=== PATIENT | male | born 1955 | race Caucasian/White ===

== ENCOUNTER → 2017-09-21 | Outpatient (CLI) | payer BC | LOC: FIMAGING 10:01 | PROVIDERS: ATTEND Orthopaedic Surgery | DX: Z01.818 Encounter for other preprocedural examination (principal); M17.12 Unilateral primary osteoarthritis, left knee; M71.22 Synovial cyst of popliteal space [Baker], left knee ==

== ENCOUNTER 2017-10-05 06:26 | Observation (INO) | payer BC, OTHER ==
[~2017-10-05 06:26] MED LIST: ROPIVACAINE 0.2% 80 MG, EPINEPHrine 0.2 MG, KETOROLAC TROMETHAMINE 30 MG in SYRINGE 0 ML IU ONE; TRANEXAMIC ACID 3,000 MG in NS (SYRINGE) 50 ML IRR ONE
[2017-10-05] MEDS ORDERED: FAMOTIDINE 20 MG TAB PO ONE (06:45)
[2017-10-05] MEDS ORDERED: DEXAMETHASONE 4 MG/ML VIAL IVP ONE (06:45)
[2017-10-05] MEDS ORDERED: ACETAMINOPHEN 325 MG TAB PO ONE (06:45)
[2017-10-05] MEDS ORDERED: ceFAZolin 2 GM/DEXTROSE 100 ML IV ONE (06:45)
[2017-10-05] MEDS ORDERED: LIDOCAINE 1% 2 ML INJ ID PRN (07:00)
[2017-10-05] MEDS ORDERED: LR 1,000 ML IV ONE (07:00)
--- NOTE | 2017-10-05 07:14 | PDHPUP ---
History & Physical Update H&P update statement: This history and physical update is based on an assessment of the patient which was completed after admission or registration (within 24 hours), but prior to the surgery/procedure. H&P update: H&P reviewed & patient examined, no change in patient's condition since H&P completed
[2017-10-05 07:38] LABS: INR 1.04 (0.83-1.16); PROTIME(PATIENT) 13.8 SEC (12.0-15.0)
[2017-10-05] MEDS ORDERED: TRANEXAMIC ACID 3,000 MG/50 ML BAG IRR ONE (07:43)
[2017-10-05] MEDS ORDERED: VANCOMYCIN 1 GM VIAL ONE (07:44)
--- NOTE | 2017-10-05 07:54 | POSTANESTH ---
Post Anesthetic Evaluation Cardiovascular Status: Normal, Stable Respiratory Status: Normal, Stable Level of Consciousness/Mental Status: Can Participate in Eval, Other, See Comment (Somewhat disoriented, but responds appropriately to questions) Pain Control: Adequate, Prn Tx Ordered Nausea/Vomiting Control: Adequate, Prn Tx Ordered Complications Possibly Related to Anesthesia: None Noted
--- NOTE | 2017-10-05 07:56 | PDANEPAE ---
ANE History of Present Illness 62 yo male with L knee OA for L TKA. ANE Past Medical History - Cardiovascular History Hx Hypertension: No Hx Arrhythmias: No Hx Chest Pain: No Hx Coronary Artery / Peripheral Vascular Disease: No Hx CHF / Valvular Disease: No Hx Palpitations: No - Pulmonary History Hx COPD: No Hx Asthma/Reactive Airway Disease: No Hx Recent Upper Respiratory Infection: No Hx Oxygen in Use at Home: No Hx Sleep Apnea: No Sleep Apnea Screening Result - Last Documented: Negative - Neurologic History Hx Cerebrovascular Accident: No Hx Seizures: No Hx Dementia: No - Endocrine History Hx Diabetes: No Hypothyroid: No Hyperthyroid: No Obesity: mild - Renal History Hx Renal Disorders: No - Liver History Hx Hepatic Disorders: No - Neurological & Psychiatric Hx Hx Neurological and Psychiatric Disorders: No - Cancer History Hx Cancer: No - Congenital Disorder History Hx Congenital Disorders: No - GI History Hx Gastrointestinal Disorders: No - Other Health History Other Health History: 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, on lifelong Coumadin since - Chronic Pain History Chronic Pain: Yes (right leg) - Surgical History Prior Surgeries: left knee scope 2015 ANE Review of Systems Review of Systems: - Exercise capacity METS (RN): 5 METS - Systems Constitutional: Reports: no symptoms EENMT: Reports: no symptoms Cardiac: Reports: no symptoms ANE Patient History - Allergies Allergies/Adverse Reactions: No Known Allergies Allergy (Verified 09/18/17 10:31) - Home Medications Home Medications: Enoxaparin [Lovenox 120 MG (*)] 120 mg SQ BID 09/18/17 [Last Taken 10/04/17 19: 00] Warfarin Sodium [Coumadin 2MG (*)] 4 mg PO SUMOWEFR@20 09/18/17 [Last Taken 04/19] Warfarin Sodium [Coumadin 5MG (*)] 5 mg PO TUTHSA@20 09/18/17 [Last Taken ] celeCOXIB [Celebrex (*)] 200 mg PO DAILY 10/05/17 [Last Taken 10/04/17 400MG] oxyCODONE IR [Oxycodone Ir (*)] 5 - 10 mg PO Q4-6PRN PRN 10/05/17 [Last Taken Unknown] - NPO status NPO Since - Liquids (Date): 10/05/17 NPO Since - Liquids (Time): 04:30 NPO Since - Solids (Date): 10/04/17 NPO Since - Solids (Time): 19:00 - Anes Hx Anes Hx: no prior problems - Smoking Hx Smoking Status: Former smoker Marijuana use: No - Alcohol Use Alcohol Use: Occasionally - Family Anes Hx Family Anes Hx: neg - N/A Family Hx Anesthesia Complications: none ANE Labs/Vital Signs - Vital Signs Vital Signs: reviewed preoperatively; see RN documention for details Height: 185.42 cm Weight: 111.584 kg ANE Physical Exam - Airway Neck exam: FROM Mallampati Score: Class 3 Mouth exam: normal dental/mouth exam - Pulmonary Pulmonary: clear to auscultation - Cardiovascular Cardiovascular: regular rate and rhythym - ASA Status ASA Status: III ANE Anesthesia Plan Anesthesia Plan: spinal Regional Anesthesia: adductor canal FNB
[2017-10-05] MEDS ORDERED: DEXAMETHASONE 4 MG/ML VIAL ONE (08:29)
[2017-10-05] MEDS ORDERED: LIDOCAINE 2% 5 ML SDV ONE (08:29)
[2017-10-05] MEDS ORDERED: PROPOFOL/EMULSION 500 MG/50 ML BOTTLE IV ONE (08:29)
[2017-10-05] MEDS ORDERED: fentaNYL 100 MCG/2 ML INJ ONE ×2 (08:29→09:22)
[2017-10-05] MEDS ORDERED: BUPIVACAINE/DEXTROSE 7.5MG/ML 2 ML SPINAL AMP SP ONE (08:35)
[2017-10-05] MEDS ORDERED: CYCLOBENZAPRINE 10 MG TAB PO PRN (09:13)
[2017-10-05] MEDS ORDERED: TEMAZEPAM 15 MG CAP PO PRN (09:13)
[2017-10-05] MEDS ORDERED: DIPHENOXYLATE/ATROPINE LOMOTIL 1 TAB PO PRN (09:13)
[2017-10-05] MEDS ORDERED: PROMETHAZINE HCL 25 MG SUPPR PR PRN (09:13)
[2017-10-05] MEDS ORDERED: POLYETHYLENE GLYCOL 3350 17 GM PKT PO PRN (09:13)
[2017-10-05] MEDS ORDERED: oxyCODONE IR 5 MG TAB PO PRN ×2 (09:13→09:47)
[2017-10-05] MEDS ORDERED: PROMETHAZINE HCL 25 MG/ML INJ IVP PRN ×2 (09:13→09:47)
[2017-10-05] MEDS ORDERED: LACTULOSE 20 GM/30 ML UDCUP PO PRN (09:13)
[2017-10-05] MEDS ORDERED: METOCLOPRAMIDE 10 MG/2 ML VIAL IVP PRN (09:13)
[2017-10-05] MEDS ORDERED: ONDANSETRON 4 MG/2 ML VIAL IVP PRN (09:13)
[2017-10-05] MEDS ORDERED: BISACODYL 10 MG SUPP PR PRN (09:13)
[2017-10-05] MEDS ORDERED: diphenhydrAMINE 25 MG CAP PO PRN (09:13)
[2017-10-05] MEDS ORDERED: ONDANSETRON DISINTEGRATING 4 MG TAB PO PRN (09:13)
[2017-10-05] MEDS ORDERED: MAGNESIUM HYDROXIDE 30 ML UDCUP PO PRN (09:13)
[2017-10-05] MEDS ORDERED: ONDANSETRON 4 MG/2 ML VIAL ONE (09:22)
[2017-10-05] MEDS ORDERED: ROPIVACAINE HCL 150 MG/30 ML INJ ONE (09:36)
[2017-10-05] MEDS ORDERED: ACETAMINOPHEN 500 MG TAB PO PRN (09:47)
[2017-10-05] MEDS ORDERED: fentaNYL 100 MCG/2 ML INJ IVP PRN (09:47)
[2017-10-05] MEDS ORDERED: ALBUTEROL 3 ML DEYVIAL IH PRN (09:47)
[2017-10-05] MEDS ORDERED: NALOXONE HCL 0.4 MG/ML INJ IVP PRN (09:47)
[2017-10-05] MEDS ORDERED: LR 500 ML IV PRN (09:47)
[2017-10-05] MEDS ORDERED: NEOSTIGMINE METHYLSULFATE 3 MG/3 ML SYR ONE (10:01)
[2017-10-05] MEDS ORDERED: GLYCOPYRROLATE 0.2 MG/1 ML VIAL ONE (10:01)
--- NOTE | 2017-10-05 10:15 | POSTOPPROG ---
Post Op Note Date of Operation: 10/05/17 Surgeon: Keri Lazo Manager Fitness: adolfo lazo Anesthesiologist: Dr. Simon Anesthesia: GET(General Endotracheal) Pre-op Diagnosis: left knee OA Post-op Diagnosis: same Indication: left knee pain due to OA that failed conservative measures Procedure: Left medial partial knee arthroplasty robot assisted computer navigation Findings: left medial knee severe OA Inf/Abcess present in the surg proc area at time of surgery?: No EBL: 50-100
[2017-10-05] MEDS: LR 1,000 ML IV SCH ×2 (12:15→20:28)
[2017-10-05] MEDS: ACETAMINOPHEN 325 MG TAB PO SCH ×2 (12:59→18:35)
[2017-10-05] MEDS: ceFAZolin 2 GM/DEXTROSE 100 ML IV SCH ×2 (15:53→22:12)
[2017-10-05] MEDS ORDERED: WARFARIN SODIUM 5 MG TAB PO SCH (16:00)
[2017-10-05] MEDS: FAMOTIDINE 20 MG TAB PO SCH (20:29)
[2017-10-05] MEDS: SENNOSIDES/DOCUSATE SODIUM TAB PO SCH (20:29)
[2017-10-06] MEDS: ACETAMINOPHEN 325 MG TAB PO SCH ×2 (00:17→05:19)
[2017-10-06 05:57] LABS: INR 1.08 (0.83-1.16); PROTIME(PATIENT) 14.2 SEC (12.0-15.0)
[2017-10-06 07:18] VITALS: BP 109/69
[2017-10-06] MEDS: SENNOSIDES/DOCUSATE SODIUM TAB PO SCH (07:48)
[2017-10-06] MEDS: FAMOTIDINE 20 MG TAB PO SCH (07:48)
[2017-10-06] MEDS ORDERED: ENOXAPARIN 40 MG/0.4 ML SYR SC SCH (09:00)
--- NOTE | 2017-10-06 10:39 | ASMTCMCOM ---
CM Note CM Note Notes: Reviewed chart and disscussed w/RN. PT recommending out pt therapy. Pt will dc home w/sister who is able to help him and get him to appts. Discussed w/Dr Vincent, no CM needs. Date Signed: 10/06/2017 10:38 AM Electronically Signed By:Vilma Lacy RN
--- NOTE | 2017-10-06 10:56 | GOP ---
[f rep st] OPERATIVE REPORT DATE OF OPERATION: 10/05/2017 SURGEON: Bart Vincent MD INTEGRATION ARCHITECT: SONIA Romero ANESTHESIA: Spinal. PREOPERATIVE DIAGNOSIS: Left knee osteoarthritis. POSTOPERATIVE DIAGNOSIS: Left knee osteoarthritis. PROCEDURE PERFORMED: LASHONDA uni-knee, left medial compartment replacement with computer navigation and robotic assist. FINDINGS: ESTIMATED BLOOD LOSS: 30 cc. INDICATIONS: This is a 62-year old male with progressive pain of the left knee unresponsive to conse rvative care. Risks and benefits of surgical intervention were explained in detail. DESCRIPTION OF PROCEDURE: The patient was brought to the operating room and placed on the table in s upine position. Spinal anesthesia was induced without difficulty. A pneumatic tourniquet was applie d about the left proximal thigh and the leg was prepped and draped in sterile fashion. Attention was turned first to the distal aspect of the left femur. At 3 cm proximal to the lateral rise of the fe mur, 2 percutaneous half pins were placed for fixation of the femoral array. In a similar fashion, 2 pins were placed anterolateral on the tibia for fixation of the tibial array. External land marking and registration of the hip center was performed without difficulty. After exsanguination by elevation, the tourniquet was inflated to 250 mmHg. Incision was made from the tibial tuberosity to the superior pole of the patella. Dissection was car ried out through the subcutaneous tissue to the deep fascia using Bovie electrocautery for hemostasis . Medial parapatellar arthrotomy was carried out to the superior pole of the patella. The medial co llateral ligament was elevated and the infrapatellar fat pad was resected. Internal femoral and tibi al registration was carried out without difficulty and the femoral and tibial checkpoints were placed and verified for accuracy. Attention was turned to the femur. The foot print for the size 5 femoral component was cut with the 6 mm bur using the Vgift robotic system and verified for accuracy against the CT based plan. The hole was cut for the femoral post. In a similar fashion, the 6 mm bur was used to cut the foot print for t he size 6 tibial component using the Vgift system and verified for accuracy against the CT based plan. Attention was turned to the posterior aspect of the knee and remnants of the medial meniscus were exc ised. The posterior capsule was injected with ropivacaine, epinephrine and Toradol. Trial reduction was carried out and there was excellent range of motion, alignment and stability using the size 5 fe moral component and the size 6 tibial component, 6 x 8 mm polyethylene. All trials were then removed. The joint was thoroughly irrigated and carefully dried. One package o f cement and 1 gram of vancomycin were mixed in the vacuum mixer and placed on the fixation surfaces of all components. The components were implanted and all excess cement was thoroughly removed. Impla nt placement was verified against the CT view plan and found to be excellent. The tourniquet was deflated and all bleeders were coagulated. The wound was thoroughly irrigated and closed using interrupted sutures of 2-0 Vicryl for the joint capsule. The subcu was closed with 3-0 Vicryl and the skin with 4-0 Monocryl. Dermabond and Steri-Strips were applied, followed by a compr essive dressing. The patient was then moved from the operating room to the recovery room in good con dition, having tolerated the procedure well. PATHOLOGY: Severe medial compartment osteoarthritis. CASE CLASSIFICATION: Clean. /[id number]/MODL
--- NOTE | 2017-10-06 11:17 | SOAPPROG ---
SOAP Progress Note Assessment/Plan: Assessment: Lane is doing well POD 1 s/p L medial partial knee arthroplasty pain is well controlled on oral pain meds VTE ppx: recommend resuming coumadin and starting 40mg lovenox QD until INR therapeutic anemia: level expected initially postop. asymptomatic draining incision: bloody draining from incision, dressing removed and new pressure dressing applied. D/C planning: d/c to home pending release from PT and recommend follow up on Sunday for incision dressing change. Do not shower until seen in office by Jessica Vincent due to draining incision Plan: 10/06/17 11:14 Subjective: Lane is doing well, mild pain, denies SOB, chest pain and n/v. Objective: Vital Signs Temp Pulse Resp BP Pulse Ox 36.8 C 48 L 18 109/69 97 10/06/17 07:17 10/06/17 07:17 10/06/17 07:17 10/06/17 07:17 10/06/17 07:17 Laboratory Results 10/06/17 04:44 10/05/17 10/06/17 10/07/17 05:59 05:59 05:59 Intake Total 1350 2518 Output Total 1375 Balance -25 2518 PT 14.2 SEC (12.0-15.0) 10/06/17 04:44 INR 1.08 (0.83-1.16) 10/06/17 04:44 LLE: incision dressing has bloody drainage, +pf/df, NVI ICD10 Worksheet Patient Problems: Problems Problem Status Onset Primary localized osteoarthritis of left knee Acute
--- NOTE | 2017-10-11 10:51 | GDS ---
[f rep st] DISCHARGE SUMMARY ADMISSION DIAGNOSIS: Left knee osteoarthritis. DISCHARGE DIAGNOSIS: Left knee osteoarthritis. PROCEDURE: Left partial knee arthoplasty, medial compartment, with robotic-assisted computer navigat ion. VTE PROPHYLAXIS: Recommend Coumadin and Lovenox. BRIEF DESCRIPTION OF HOSPITAL STAY: Patient was admitted for an elective joint arthroplasty. The pa tient tolerated the procedure well and has passed physical therapy. The patient was given appropriat e antibiotic prophylaxis and venous thromboembolism prophylaxis. The patient's pain was well control led on oral pain medication, patient was holding down food, and had urinated. Decision was made to d ischarge the patient. The patient was given post-operative prescriptions pre-operatively. PLAN: Follow up as scheduled with Dr. Vincent's office October 29 at 9:30. /[id number]/MODL
== END 2017-10-06 12:26 | disposition home or self-care (01) ==
LOC: F3N 06:26
PROVIDERS: ADMIT Orthopaedic Surgery; ATTEND Orthopaedic Surgery
DX: M17.12 Unilateral primary osteoarthritis, left knee (principal); Z86.718 Personal history of other venous thrombosis and embolism; Z86.711 Personal history of pulmonary embolism; Z79.01 Long term (current) use of anticoagulants
CPT/HCPCS: 27447; 73560; 97110; 97116; 97161; 97165; G0378; C1713; J0171; J0690; J1100; J1650; J1885; J2405; J2704; J2710; J2795; J3010; J3370

== ENCOUNTER → 2018-09-28 | Outpatient (CLI) | payer OTHER, BC | LOC: FIMAGING 10:54 ==